=== PATIENT | female | born 1950 | race Caucasian/White ===

== ENCOUNTER 2019-08-13 22:22 | Emergency (ER) | payer MEDICARE ==
[~2019-08-13] VITALS: Ht 172.7 cm; Wt 48.6 kg
[2019-08-13 22:29] VITALS: BP 152/104; Ht 172.7 cm; Wt 48.6 kg
[2019-08-13] MEDS ORDERED: DONEPEZIL HCL5 MG PO (22:31)
[2019-08-13] MEDS ORDERED: ASPIRIN81 MG PO (22:32)
[2019-08-13] MEDS ORDERED: VITAMIN D3 (22:32)
[2019-08-13] MEDS ORDERED: LIPITOR10 MG PO (22:32)
[2019-08-13] MEDS ORDERED: CYMBALTA60 MG PO (22:33)
[2019-08-13] MEDS ORDERED: BUSPAR10 MG PO (22:33)
[2019-08-13] MEDS ORDERED: CARBIDOPA-LEVO1 EAC2 PO (22:33)
[2019-08-13 22:57] LABS: BASOPHILS 0.1 % (0-2); EOSINOPHILS 0.3 % (0-7); HEMOGLOBIN 13.4 g/dL (12-16); IMMATURE GRANULOCYTES 0.3 % (0-5); LYMPHOCYTES 19.7 % (15-50); MCH 29.3 pg (26.0-34.0); MCHC 31.9 g/dL (31.0-37.0); MCV 91.7 fL (80.0-100.0); MEAN PLATELET VOLUME 10.6 fL (7.4-10.4); NEUTROPHILS 71.6 % (40-80); PLATELET COUNT 153 10x3/uL (130-400); RBC 4.58 10x6/uL (4.00-5.40); RDW 13.8 % (11.5-14.5); WBC 7.2 10x3/uL (4.8-10.8)
[2019-08-13 23:04] LABS: CALC OSMOLALITY 273 mosm/kg (275-300); CALCIUM 9.2 mg/dL (8.5-10.1); CHLORIDE - SERUM 102 mmol/L (98-107); CREATININE - SERUM 0.7 mg/dL (0.6-1.3); GLUCOSE 89 mg/dL (74-106); POTASSIUM - SERUM 4.3 mmol/L (3.5-5.1); SODIUM 136 mmol/L (136-145); UREA NITROGEN 20 mg/dL (7-18); eGFR NON AFRICAN AMERICAN 87 mL/min (90-120)
[2019-08-13 23:13] LABS: ALBUMIN 3.7 g/dL (3.4-5.0); ALKALINE PHOSPHATASE 96 U/L (30-120); ALT (SGPT) 16 U/L (10-68); AMYLASE - SERUM 65 U/L (25-115); BILIRUBIN - TOTAL 0.62 mg/dL (0.2-1.3); LIPASE 136 U/L (73-393); PROTEIN - SERUM 7.1 g/dL (6.4-8.2)
[2019-08-13 23:20] LABS: TROPONIN-I < 0.017 ng/mL (0.000-0.060)
[2019-08-14 00:38] LABS: BILIRUBIN NEGATIVE (NEGATIVE); GLUCOSE NEGATIVE (NEGATIVE); KETONE NEGATIVE (NEGATIVE); NITRITE POSITIVE (NEGATIVE); UROBILINOGEN NORMAL (NORMAL)
[2019-08-14 00:40] LABS: BACTERIA MODERATE /hpf (NEGATIVE); EPITHELIAL CELLS 0-5 /hpf (0-5); RED CELLS - URINE 0-5 /hpf (0-5)
[2019-08-14] MEDS ORDERED: MACROBID100 MG PO (01:48)
== END 2019-08-14 02:17 | disposition home or self-care (01) ==
LOC: D.ER 22:22
PROVIDERS: Emergency Medicine
DX: N39.0 Urinary tract infection, site not specified (principal); I10 Essential (primary) hypertension; J44.9 Chronic obstructive pulmonary disease, unspecified; Z72.0 Tobacco use; R10.9 Unspecified abdominal pain

== ENCOUNTER 2019-08-18 17:45 | Emergency (ER) | payer MEDICARE ==
[~2019-08-18] VITALS: Ht 172.7 cm; Wt 46.8 kg
[~2019-08-18 17:45] MED LIST: ASPIRIN81 MG PO; BUSPAR10 MG PO; CARBIDOPA-LEVO1 EAC2 PO; CYMBALTA60 MG PO; DONEPEZIL HCL5 MG PO; LIPITOR10 MG PO; MACROBID100 MG PO; VITAMIN D3
[2019-08-18 17:57] VITALS: Ht 172.7 cm; Wt 46.8 kg
[2019-08-18 18:30] LABS: BASOPHILS 0.2 % (0-2); EOSINOPHILS 0.3 % (0-7); HEMATOCRIT 42.8 % (36.0-48.0); HEMOGLOBIN 13.9 g/dL (12-16); IMMATURE GRANULOCYTES 0.2 % (0-5); LYMPHOCYTES 21.9 % (15-50); MCH 29.4 pg (26.0-34.0); MCHC 32.5 g/dL (31.0-37.0); MCV 90.5 fL (80.0-100.0); MEAN PLATELET VOLUME 10.9 fL (7.4-10.4); MONOCYTES 7.5 % (2-11); NEUTROPHILS 69.9 % (40-80); RBC 4.73 10x6/uL (4.00-5.40); RDW 13.5 % (11.5-14.5); WBC 6.4 10x3/uL (4.8-10.8)
[2019-08-18 18:38] LABS: PLATELET COUNT 186 10x3/uL (130-400)
[2019-08-18 18:41] LABS: CALC OSMOLALITY 275 mosm/kg (275-300); CALCIUM 9.4 mg/dL (8.5-10.1); CARBON DIOXIDE 34.2 mmol/L (21.0-32.0); CHLORIDE - SERUM 102 mmol/L (98-107); CREATININE - SERUM 0.8 mg/dL (0.6-1.3); GLUCOSE 100 mg/dL (74-106); POTASSIUM - SERUM 4.5 mmol/L (3.5-5.1); SODIUM 138 mmol/L (136-145); UREA NITROGEN 12 mg/dL (7-18); eGFR NON AFRICAN AMERICAN 75 mL/min (90-120)
[2019-08-18 18:49] LABS: ALBUMIN 4.1 g/dL (3.4-5.0); ALKALINE PHOSPHATASE 104 U/L (30-120); ALT (SGPT) 11 U/L (10-68); BILIRUBIN - TOTAL 0.68 mg/dL (0.2-1.3); PROTEIN - SERUM 7.5 g/dL (6.4-8.2)
[2019-08-18 20:23] VITALS: BP 124/14
== END 2019-08-18 20:23 | disposition home or self-care (01) ==
LOC: D.ER 17:45
PROVIDERS: Family Medicine
DX: S92.342A Displaced fracture of fourth metatarsal bone, left foot, initial encounter for closed fracture (principal); I10 Essential (primary) hypertension; J44.9 Chronic obstructive pulmonary disease, unspecified; Z72.0 Tobacco use; X58.XXXA Exposure to other specified factors, initial encounter